=== PATIENT | female | born 1975 | race African-American/Black ===

== ENCOUNTER 2017-08-28 20:57 | Emergency (ER) | payer SELFPAY ==
[2017-08-28] MEDS ORDERED: Sodium Chloride 0.9% 1,000 ML IV ONE (21:04)
[2017-08-28] MEDS ORDERED: Morphine 4 MG/ML Syringe IVPUSH ONE (21:04)
[2017-08-28] MEDS ORDERED: Ondansetron 4 MG/2 ML SDV IVPUSH ONE (21:04)
[2017-08-28] MEDS ORDERED: Diphtheria,Pertussis(Acell),Tetanus Vaccine 0.5 ML Syringe IM ONE (21:04)
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
[2017-08-28 21:29] LABS: CHLORIDE,CL 104 mmol/L (98-107); SODIUM,NA 141 mmol/L (136-145)
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
== END 2017-08-28 21:50 ==
LOC: MW.ED 20:57
DX: S62.101A Fracture of unspecified carpal bone, right wrist, initial encounter for closed fracture (principal); V49.9XXA Car occupant (driver) (passenger) injured in unspecified traffic accident, initial encounter; Z23 Encounter for immunization
CPT/HCPCS: 71045; 72170; 80053; 85025; 85610; 90471; 90715; 93005; 96361; 96374; 96375; 99285; J2270; J2405; J7040

== ENCOUNTER 2017-09-04 14:17 | Emergency (ER) | payer OTHER ==
[2017-09-04] MEDS ORDERED: Ketorolac 60 MG/2 ML SDV IM ONE (14:50)
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
== END 2017-09-04 15:49 | disposition home or self-care (01) ==
LOC: MW.ED 14:17
DX: S62.101D Fracture of unspecified carpal bone, right wrist, subsequent encounter for fracture with routine healing (principal); G89.18 Other acute postprocedural pain; Z79.82 Long term (current) use of aspirin; Z79.899 Other long term (current) drug therapy; Z88.4 Allergy status to anesthetic agent; V89.2XXD Person injured in unspecified motor-vehicle accident, traffic, subsequent encounter; Z98.890 Other specified postprocedural states
CPT/HCPCS: 96372; 99283; J1885